=== PATIENT | female | born 1960 | race Caucasian/White ===

== ENCOUNTER → 2017-01-17 | Outpatient (CLI) | payer BC ==
[~2017-01-17] MED LIST: GLUCOPHAGE500 MG/TAB PO; KOMBIGLYZE XR 11 TE1 PO; LIPITOR 10MG10 MG PO; MACROBID 1100 MG/CAP PO; STOOL SOFTENER100 M2 PO; ZOFRAN ODT4 MG PO
== END ==
LOC: MC.RAD 16:20
DX: Z12.31 Encounter for screening mammogram for malignant neoplasm of breast (principal)